=== PATIENT | male | born 1965 | race Caucasian/White ===

== ENCOUNTER 2016-11-11 08:15 | Emergency (ER) | payer SELFPAY ==
[2016-11-11 08:31] VITALS: BP 151/92; PULSE 65; TEMP 98.3; BMI 32.5
[2016-11-11] MEDS ORDERED: KETOROLAC TROMETHAMINE 60 MG/2 ML VIAL IM ONE (09:02)
[2016-11-11 09:37] LABS: URINE APPEARANCE CLEAR; URINE BILIRUBIN NEGATIVE (NEGATIVE); URINE BLOOD NEGATIVE (NEGATIVE); URINE COLOR YELLOW; URINE GLUCOSE (UA) NEGATIVE (NEGATIVE); URINE KETONE NEGATIVE (NEGATIVE); URINE LEUK ESTERASE NEGATIVE (NEGATIVE); URINE NITRITE NEGATIVE (NEGATIVE); URINE PROTEIN NEGATIVE (NEGATIVE); URINE UROBILINOGEN NEGATIVE E.U./dl (0.2-1.0)
--- NOTE | 2016-11-11 09:54 | PDOC ---
History of Present Illness - General Chief Complaint: Chronic pain Stated Complaint: BACK PAIN Time Seen by Provider: 11/11/16 08:37 History Source: Patient Exam Limitations: No Limitations - History of Present Illness Initial Comments: 11/11/16 09:47 51 yr male with chronic low back pain for many years. Pt states he has pain to low back for one week has not had insurance until recently. Pt had MRI in 2015 that showed herniated discs L4 and L5. Pt denies saddle anesthesia denies rectal pain or numbness, no abd pain. Pt has urinary burning "sometimes" no discharge. Pt is a recovering addict. no surgeries. Past History - Past Medical History Allergies/Adverse Reactions: Allergies Allergy/AdvReac Type Severity Reaction Status Date / Time Penicillins Allergy Verified 11/11/16 08:28 Home Medications: Ambulatory Orders Cyclobenzaprine HCl [Flexeril 10 mg] 5 mg PO TID PRN #21 tablet 11/11/16 Naproxen [Naprosyn -] 500 mg PO BID #28 tablet 11/11/16 Other medical history: back pain - Psycho/Social/Smoking Cessation Hx Anxiety: No Suicidal Ideation: No Smoking History: Current every day smoker Have you smoked in the past 12 months: Yes Number of Cigarettes Smoked Daily: 8 Information on smoking cessation initiated: Yes 'Breaking Loose' booklet given: 11/11/16 Hx Alcohol Use: No Drug/Substance Use Hx: No Substance Use Type: None Review of Systems - Review of Systems Able to Perform ROS?: Yes Is the patient limited Irish proficient: No Constitutional: No: Symptoms Reported HEENTM: No: Symptoms Reported Respiratory: No: Symptoms reported Cardiac (ROS): No: Symptoms Reported ABD/GI: No: Symptoms Reported : Yes: Burning Musculoskeletal: Yes: See HPI, Back Pain *Physical Exam - Vital Signs Last Vital Signs Temp Pulse Resp BP Pulse Ox 98.3 F 65 18 151/92 100 11/11/16 08:29 11/11/16 08:29 11/11/16 08:29 11/11/16 08:29 11/11/16 08:29 - Physical Exam General Appearance: Yes: Nourished, Appropriately Dressed HEENT: positive: EOMI, KYM, Normal ENT Inspection, TMs Normal, Pharynx Normal Neck: positive: Supple Respiratory/Chest: positive: Lungs Clear, Normal Breath Sounds Cardiovascular: positive: Regular Rhythm, Regular Rate Gastrointestinal/Abdominal: positive: Normal Bowel Sounds, Soft. negative: Tender Rectal Exam: positive: deferred Lymphatic: negative: Adenopathy Musculoskeletal: positive: Normal Inspection, Vertebral Tenderness (lumbar spine , paraspinal soft tissues TTP). negative: CVA Tenderness, CVA Tenderness (R), CVA Tenderness (L) Extremity: positive: Normal Capillary Refill, Normal Inspection, Normal Range of Motion Integumentary: positive: Normal Color, Dry, Warm Neurologic: positive: Fully Oriented, Alert, Normal Mood/Affect, Normal Response , Motor Strength 01/10 ED Treatment Course - ADDITIONAL ORDERS Additional order review: Laboratory Results 11/11/16 09:13 Urine Color Yellow Urine Appearance Clear Urine pH 5.0 Ur Specific [place] 1.020 Urine Protein Negative Urine Glucose (UA) Negative Urine Ketones Negative Urine Blood Negative Urine Nitrite Negative Urine Bilirubin Negative Urine Urobilinogen Negative Ur Leukocyte Esterase Negative - RADIOLOGY Radiology Studies Ordered: Category Date Time Status SPINE-LUMBAR ONLY [RAD] Stat Radiology 11/11/16 09:02 Completed - Medications Given in the ED: ED Medications Discontinued Medications Generic Name Dose Route Start Last Admin Trade Name Freq PRN Reason Stop Dose Admin Ketorolac Tromethamine 60 mg 11/11/16 09:02 11/11/16 09:08 Toradol Injection - IM 11/11/16 09:03 60 mg ONCE ONE Administration Medical Decision Making - Medical Decision Making 11/11/16 09:50 cc: acute on chronic low back pain will give toradol xray and urine pt ambuating with steady gait will refer to neurosurgeon *DC/Admit/Observation/Transfer Diagnosis at time of Disposition: Back pain at L4-L5 level - Discharge Dispostion Disposition: HOME Condition at time of disposition: Good - Prescriptions Prescriptions: Cyclobenzaprine HCl [Flexeril 10 mg] 5 mg PO TID PRN #21 tablet PRN Reason: Muscle Spasms Naproxen [Naprosyn -] 500 mg PO BID #28 tablet - Referrals Referrals: [facility] [Provider Group] - Patient Instructions Additional Instructions: follow with the neurologist group listed below apply warm compresses to lower back every 3-4hrs for pain take flexeril for muscle spasm and take with naprosyn for pain Return to ER for any worsening symptoms
== END 2016-11-11 10:05 | disposition home or self-care (01) ==
LOC: JERFT 08:15
PROC: 3E0233Z Introduction of Anti-inflammatory into Muscle, Percutaneous Approach (ICD-10-PCS; principal; 2016-11-11)
DX: M62.830 Muscle spasm of back (principal)
CPT/HCPCS: 72100-TC; 81003; 99281-25

== ENCOUNTER 2016-12-11 14:05 | Emergency (ER) | payer SELFPAY ==
[2016-12-11 14:12] VITALS: BP 136/94; PULSE 85; TEMP 98; BMI 30.5
[2016-12-11] MEDS ORDERED: KETOROLAC TROMETHAMINE 60 MG/2 ML VIAL IM ONE (16:25)
--- NOTE | 2016-12-11 16:25 | PDOC ---
History of Present Illness - General Chief Complaint: Back Pain Stated Complaint: PAIN Time Seen by Provider: 12/11/16 15:54 History Source: Patient Exam Limitations: No Limitations - History of Present Illness Initial Comments: 12/11/16 16:13 My chief complaint: History of present illness: 51 yr male with chronic low back pain for many years. Pt states he has pain to low back mostly left sided with patient down his left posterior leg intermittently for years. He denies any numbness of his legs has intermittent tingling bilaterally. Patient denies any saddle anesthesia. Patient was seen here on 11/11/2016 for similar complaint for which she had an x-ray lumbar spine that revealed L5-S1 intervertebral disc space narrowing. Patient was referred to [facility] however he was unable to go due to not having insurance. Pt had MRI in 2014 that showed a fracture of his vertebra lower spine. He reports that he has been taking ibuprofen without relief of pain last taken yesterday. Patient reports the pain currently is an 8 out of 10 worse with movement. l Occurred: reports: other (intermittent for years worse in last week ) Severity: reports: severe (left sided lower back radiates down left posterior leg) Pain Location: reports: back (left sided lower back radiates down left leg) Method of Injury: Yes: unknown Modifying Factors: improves with: None Loss of Consciousness: no loss of consciousness Associated Symptoms (Fall): denies symptoms Past History - Past Medical History Allergies/Adverse Reactions: Allergies Allergy/AdvReac Type Severity Reaction Status Date / Time Penicillins Allergy Verified 12/11/16 14:12 Home Medications: Ambulatory Orders Cyclobenzaprine HCl [Flexeril 10 mg] 5 mg PO Q8H PRN #21 tablet 12/11/16 Naproxen [Naprosyn -] 500 mg PO BID PRN #14 tablet 12/11/16 Other medical history: BACK PROBLEMS - Psycho/Social/Smoking Cessation Hx Anxiety: No Suicidal Ideation: No Smoking History: Current every day smoker Have you smoked in the past 12 months: Yes Number of Cigarettes Smoked Daily: 8 Information on smoking cessation initiated: No 'Breaking Loose' booklet given: 11/11/16 Hx Alcohol Use: No Drug/Substance Use Hx: No Substance Use Type: None Review of Systems - Review of Systems Able to Perform ROS?: Yes Constitutional: No: Symptoms Reported HEENTM: No: Symptoms Reported Respiratory: No: Symptoms reported Cardiac (ROS): No: Symptoms Reported ABD/GI: No: Symptoms Reported : No: Symptoms Reported Musculoskeletal: Yes: Back Pain (left sided lower back radiates down left leg to foot) Integumentary: No: Symptoms Reported Neurological: Yes: Tingling (intermittently b/l lower legs) *Physical Exam - Vital Signs Last Vital Signs Temp Pulse Resp BP Pulse Ox 98.0 F 85 20 136/94 97 12/11/16 14:09 12/11/16 14:09 12/11/16 14:09 12/11/16 14:09 12/11/16 14:09 - Physical Exam General Appearance: Yes: Appropriately Dressed Respiratory/Chest: positive: Lungs Clear, Normal Breath Sounds Cardiovascular: positive: Regular Rhythm, Regular Rate, S1, S2 Musculoskeletal: positive: Decreased Range of Motion (from waist ), Muscle Spasm (left paraspinal muscles lumbar). negative: CVA Tenderness, CVA Tenderness (R), CVA Tenderness (L), Vertebral Tenderness Integumentary: positive: Normal Color Neurologic: positive: Alert, Normal Response, Motor Strength 5/5 (b/l legs), Respond to painful stimul (b/l lower legs), Other (negative SLR b/l ). negative : Numbness, Sensory Deficit (lower legs b/l ) Deep Tendon Reflexes: Knee (L): 3+, Knee (R): 3+ Medical Decision Making - Medical Decision Making 12/11/16 16:42 51 yr male with chronic low back pain for many years. Pt states he has pain to low back mostly left sided with patient down his left posterior leg intermittently for years. He denies any numbness of his legs has intermittent tingling bilaterally. Patient denies any saddle anesthesia. Patient was seen here on 11/11/2016 for similar complaint for which she had an x-ray lumbar spine that revealed L5-S1 intervertebral disc space narrowing. Patient was referred to [facility] however he was unable to go due to not having insurance. Pt had MRI in 2014 that showed a fracture of his vertebra lower spine. He reports that he has been taking ibuprofen without relief of pain last taken yesterday. Patient reports the pain currently is an 8 out of 10 worse with movement. 12/11/16 16:42 eft sided lower back pain with radiculopathy PLAN: toradol 60 mg IM now flexeril 5 mg tid prn muscle spasm X 7 days Naprosyn 500 mg bid prn pain X 7 days follow up with ada vegas at [facility] at [phone] 12/11/16 16:56 *DC/Admit/Observation/Transfer Diagnosis at time of Disposition: Lumbar back pain with radiculopathy affecting left lower extremity - Discharge Dispostion Disposition: HOME Condition at time of disposition: Stable - Prescriptions Prescriptions: Cyclobenzaprine HCl [Flexeril 10 mg] 5 mg PO Q8H PRN #21 tablet PRN Reason: Muscle Spasms Naproxen [Naprosyn -] 500 mg PO BID PRN #14 tablet PRN Reason: Pain - Patient Instructions Additional Instructions: Avoid any strenous activities or lifting Return to emergency room if symptoms worsen any numbness of groin area or inability to hold urine or worsening pain Follow up with orthopedist at [facility] at [phone] as soon as possible Patient voiced understanding of discharge instructions and all questions were answered
[2016-12-11] MEDS ORDERED: KETOROLAC TROMETHAMINE 60 MG/2 ML VIAL ONE (16:29)
== END 2016-12-11 16:56 | disposition home or self-care (01) ==
LOC: JERFT 14:05
PROC: 3E0233Z Introduction of Anti-inflammatory into Muscle, Percutaneous Approach (ICD-10-PCS; principal; 2016-12-11)
DX: M54.16 Radiculopathy, lumbar region (principal); F17.210 Nicotine dependence, cigarettes, uncomplicated
CPT/HCPCS: 99281-25

== ENCOUNTER 2019-08-02 05:53 | Emergency (ER) | payer OTHER ==
[2019-08-02 06:31] VITALS: TEMP 97.7; BMI 31.1
[2019-08-02] MEDS ORDERED: KETOROLAC TROMETHAMINE 60 MG/2 ML VIAL IM ONE (07:36)
[2019-08-02] MEDS ORDERED: KETOROLAC TROMETHAMINE 60 MG/2 ML VIAL ONE (07:47)
[2019-08-02 07:58] VITALS: BP 139/87; PULSE 60
--- NOTE | 2019-08-02 08:02 | PDOC ---
History of Present Illness - General Chief Complaint: Pain, Acute Stated Complaint: LEFT SHOULDER AND NECK PAIN Time Seen by Provider: 08/02/19 07:30 History Source: Patient Exam Limitations: No Limitations - History of Present Illness Initial Comments: 08/02/19 08:17 54-year-old male presents to ED with complaints of left shoulder pain intermittently for the past month worsened with lateral movement or upon awakening. 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 Patient denies any weakness to the left upper extremity numbness or tingling. Patient states was seen by his PCP who prescribed Motrin and a topical cream with moderate effect. Is this a multiple visit Asthma Patient?: No Timing/Duration: other (1 MONTH) Severity: mild Associated Symptoms: denies: weakness Past History - Travel Traveled outside of the country in the last 30 days: No Close contact w/someone who was outside of country & ill: No - Past Medical History Allergies/Adverse Reactions: Allergies Allergy/AdvReac Type Severity Reaction Status Date / Time Penicillins Allergy Verified 08/02/19 06:31 Home Medications: Ambulatory Orders Atorvastatin Ca [Lipitor] 10 mg PO HS 08/02/19 Cetirizine HCl 10 mg PO 10 08/02/19 Gabapentin 300 mg PO TID 08/02/19 Ibuprofen 600 mg PO PRN 08/02/19 Lisinopril 10 mg PO DAILY 08/02/19 COPD: No HTN: Yes Hypercholesterolemia: Yes Other medical history: sciatica pain, - Psycho Social/Smoking Cessation Hx Smoking History: Never smoked Have you smoked in the past 12 months: Yes Number of Cigarettes Smoked Daily: 8 Information on smoking cessation initiated: No 'Breaking Loose' booklet given: 11/11/16 Hx Alcohol Use: No Drug/Substance Use Hx: No Substance Use Type: None Patient Lives Alone: Yes Lives with/in: lives alone Review of Systems - Review of Systems Able to Perform ROS?: No Is the patient limited Persian proficient: No Constitutional: No: Symptoms Reported HEENTM: No: Symptoms Reported Cardiac (ROS): No: Symptoms Reported ABD/GI: No: Symptoms Reported : No: Symptoms Reported Musculoskeletal: Yes: Joint Pain (left shoulder). No: Muscle Pain Integumentary: No: Symptoms Reported Neurological: No: Symptoms reported, Weakness Hematologic/Lymphatic: No: Symptoms Reported *Physical Exam - Vital Signs Last Vital Signs Temp Pulse Resp BP Pulse Ox 97.7 F 55 L 16 134/80 97 08/02/19 06:00 08/02/19 06:00 08/02/19 06:00 08/02/19 06:00 08/02/19 06:00 - Physical Exam General Appearance: Yes: Nourished, Appropriately Dressed. No: Apparent Distress Cardiovascular: positive: Regular Rhythm, Regular Rate. negative: Murmur Extremity: positive: Tender (To anterior aspect of left shoulder. no deformity no crepitus. ). negative: Normal Range of Motion Integumentary: positive: Normal Color, Warm, Moist Neurologic: positive: Motor Strength 5/5 (ambulatory) ED Treatment Course - RADIOLOGY Radiology Studies Ordered: Category Date Time Status SHOULDER-LEFT [RAD] Stat Radiology 08/02/19 07:36 Ordered Medical Decision Making - Medical Decision Making 08/02/19 08:00 chief complaint: Left shoulder pain intimately for the past month. Patient is been taking Motrin and topical Cream with moderate effect. patient states has had no imaging or injury to area Exam: Patient with tenderness to the anterior aspect of shoulder and unable to perform lateral raise greater than 100 degrees without experiencing discomfort Plan: Toradol IM and x-ray of the shoulder 08/02/19 08:21 X-ray shows no subluxation, fracture lytic or blastic lesions. Patient will be given referral to orthopedist as this is likely rotator cuff Discharge - Discharge Information Problems reviewed: Yes Clinical Impression/Diagnosis: Left shoulder pain Condition: Improved Disposition: HOME - Follow up/Referral Referrals: Vahe Gerber MD [Staff Physician] - - Patient Discharge Instructions Patient Printed Discharge Instructions: DI for Shoulder Pain Additional Instructions: Please follow-up with the orthopedist. May take Motrin 600 or 975 of Tylenol every 6 hours for discomfort. Avoid movements that trigger discomfort. - Post Discharge Activity
== END 2019-08-02 08:31 | disposition home or self-care (01) ==
LOC: JER 05:53
PROC: 3E0233Z Introduction of Anti-inflammatory into Muscle, Percutaneous Approach (ICD-10-PCS; principal; 2019-08-02)
DX: M25.512 Pain in left shoulder (principal); I10 Essential (primary) hypertension; E78.00 Pure hypercholesterolemia, unspecified; Z87.39 Personal history of other diseases of the musculoskeletal system and connective tissue; Z88.0 Allergy status to penicillin
CPT/HCPCS: 73030-TC-LT-FY; 99282-25